=== PATIENT | male | born 1955 | race Two or more races ===

== ENCOUNTER 2019-08-29 15:41 | Observation (INO) | payer SELFPAY ==
[~2019-08-29] VITALS: Ht 160 cm; Wt 76.3 kg
[2019-08-29] MEDS ORDERED: IV NORMAL SALINE 1000ML BAG 1,000 ML IV SCH (16:14)
[2019-08-29] MEDS ORDERED: MULTIVIT INFUSN,ADULT 4,VIT K 10 ML, THIAMINE INJ 100 MG, FOLIC ACID INJ 1 MG in IV NOR... IV ONE (16:15)
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
[2019-08-29 17:12] LABS: BASO # 0.1 x10^3/uL (0.0-0.2); BASO % 1 % (0-3); EOS # 0.1 x10^3/uL (0.0-0.7); EOS % 2 % (0-3); HEMATOCRIT 38.1 % (39.0-53.0); HEMOGLOBIN 12.9 g/dL (13.0-17.5); LYMPH # 2.2 x10^3/uL (1.0-4.8); LYMPH % 37 % (24-48); MEAN CORPUSCULAR HEMOGLOBIN 34 pg (25-35); MEAN CORPUSCULAR HGB CONC 34 g/dL (31-37); MEAN CORPUSCULAR VOLUME 101 fL (79-100); MONO # 0.7 x10^3/uL (0.0-1.1); MONO % 12 % (0-9); NEUT # 2.8 x10^3/uL (1.8-7.7); NEUT % 49 % (31-73); PLATELET COUNT 231 x10^3/uL (140-400); RED BLOOD COUNT 3.78 x10^6/uL (4.30-5.70); RED CELL DISTRIBUTION WIDTH 13.5 % (11.5-14.5); WHITE BLOOD COUNT 5.8 x10^3/uL (4.0-11.0)
[2019-08-29 17:20] LABS: CALCIUM 8.5 mg/dL (8.5-10.1); CREATININE 1.1 mg/dL (0.7-1.3)
[2019-08-29 17:26] LABS: ALBUMIN 2.9 g/dL (3.4-5.0); DIRECT BILIRUBIN 0.2 mg/dL (0.0-0.2); TOTAL BILIRUBIN 0.4 mg/dL (0.2-1.0); TOTAL PROTEIN 6.4 g/dL (6.4-8.2)
[2019-08-29 19:30] VITALS: BP 109/73
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
--- NOTE | 2019-08-29 20:43 | NUR ---
pt claimed he doesnt have any pharmacy that he usually go to. Addendum: 08/29/19 at 2043 by KESHA TABARES RN Amended: Links added.
[2019-08-29 22:52] VITALS: BP 109/77
[2019-08-30 02:32] VITALS: BP 128/85
--- NOTE | 2019-08-30 06:09 | NUR ---
refused shower @ this time claimed its "too early".
[2019-08-30 07:51] VITALS: BP 142/89
[2019-08-30] MEDS ORDERED: MULTIVIT INFUSN,ADULT 4,VIT K 10 ML, THIAMINE INJ 100 MG, FOLIC ACID INJ 1 MG in IV NOR... IV SCH (09:00)
[2019-08-30 11:37] VITALS: BP 162/89
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
--- NOTE | 2019-08-30 16:16 | NUR ---
Discharge Note: MELVINA HURTADO [address] Discharge instructions and discharge home medications reviewed with Patient and a copy given. All questions have been answered and understanding verbalized. The following instructions and handouts were given: discharge packet and alcohol intoxication education. Discontinued peripheral IV with no complications. Patient discharged to home, transportation provided by cab, nursing escorted pt with belongings to transportation.
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
== END 2019-08-30 16:00 | disposition home or self-care (01) ==
LOC: ER 15:41 → 2 SOUTH 19:00
PROVIDERS: ADMIT Internal Medicine; ATTEND Internal Medicine
DX: F10.129 Alcohol abuse with intoxication, unspecified (principal); E87.0 Hyperosmolality and hypernatremia; E87.8 Other disorders of electrolyte and fluid balance, not elsewhere classified; V43.52XA Car driver injured in collision with other type car in traffic accident, initial encounter; Y93.89 Activity, other specified; Y92.481 Parking lot as the place of occurrence of the external cause; Y99.8 Other external cause status
CPT/HCPCS: 36415; 70450; 72125; 80048; 80076; 83735; 85025; 96365; 96366; 99284; G0378; G0379; G0480; J3411; J3490; J7030